=== PATIENT | female | born 1975 | race Caucasian/White ===

== ENCOUNTER 2019-12-19 16:50 | Emergency (ER) | payer MEDICAID, OTHER ==
[~2019-12-19] VITALS: Ht 165.1 cm; Wt 127.0 kg
[2019-12-19 17:00] VITALS: BP_SYST 126
--- NOTE | 2019-12-19 17:00 | NUR ---
Pt came to ER for low back pain 11/03 pt reports she has not taken meds at home and it has increased in intensity over the course of the day. Pt resting in [facility], awaiting MD.
--- NOTE | 2019-12-19 17:00 | NUR ---
Patient to ER bed 7 to gown for evaluation. Side rails up.
--- NOTE | 2019-12-19 17:15 | NUR ---
DR JOHN IN TO ASSESS
--- NOTE | 2019-12-19 17:30 | NUR ---
RECEIVED IN ROOM, CALM, ALERT, RESP UNLABORED, SKIN WARM AND DRY. COMMUNICATES CLEARLY IN FULL COMPLETE SENTENCES. NO DISTRESS
[2019-12-19] MEDS: KETOROLAC TROMETHAMINE 60 MG/2 ML VIAL IM ONE (17:35)
[2019-12-19 18:13] VITALS: BP_SYST 121
--- NOTE | 2019-12-19 18:14 | NUR ---
Patient given written and verbal discharge instructions and verbalizes understanding. ER MD discussed with patient the results and treatment provided. Patient in stable condition. ID arm band removed. Rx of IBU given. Patient educated on pain management and to follow up with PMD. Pain Scale 0/10 Opportunity for questions provided and answered. Medication side effect fact sheet provided.
== END 2019-12-19 18:13 | disposition home or self-care (01) ==
LOC: SED 16:50
DX: M54.5 Low back pain (principal); E66.01 Morbid (severe) obesity due to excess calories; Z88.6 Allergy status to analgesic agent
CPT/HCPCS: 96372; 99283; J1885